=== PATIENT | female | born 1985 | race Caucasian/White ===

== ENCOUNTER 2017-01-07 19:11 | Emergency (ER) | payer SELFPAY ==
[2017-01-07 19:36] VITALS: RESP 18; TEMP 97.4
--- NOTE | 2017-01-07 20:45 | PDOC ---
Hand / Wrist Injury HPI - General Chief Complaint: Upper Extremity Problem/Injury Stated Complaint: Left 4th digit injury Date Seen by Provider: 01/07/17 Time Seen by Provider: 19:25 Source: POSITIVE: Patient Exam Limitations: POSITIVE: No limitations Nurse's Notes Reviewed & Considered: Yes - History of Present Illness Initial Comments: The patient is a 31-year-old female. Somewhat less than an hour [employer] she was leading a horse by its reins. She had the reins wrapped around her left fourth and fifth fingers. The horse pulled way and the reins tightened around these 2 digits. Patient complains of pain over the middle phalange of the left fourth finger. No paresthesia or noted sensory or motor symptoms. She denies any other injuries. Have you received a tetanus shot in the past 10 years?: Unknown Body Location Affected: REPORTS: Upper Extremity (L) Timing: REPORTS: Abrupt Duration: 1 hour Severity: Moderate Context: REPORTS: Other (As above) Location of Injury: REPORTS: 4th Finger Quality: REPORTS: "Pain" Modifying Factors: REPORTS: Movement Associated Symptoms: DENIES: Arm (R), Arm (L), Tingling Distally, Numbness Distally, Loss of Feeling, Loss of Power, Other Any Prior Injuries Related to Current Complaint?: Yes (as above) - Patient Home Medications Home Medications: Home Medications NK [No Home Medications Reported] 01/07/17 - Patient Allergies Allergies/Adverse Reactions: Allergies Allergy/AdvReac Type Severity Reaction Status Date / Time No Known Allergies Allergy Verified 01/07/17 19:14 Past Medical History - heen HEENT History: Denies History Cardiovascular History: Denies History Respiratory History: Denies History Gastrointestinal History: Denies History Genitourinary History: Denies History Endocrine History: Denies History Musculoskeletal History: Denies History Neurological History: Denies History Blood Disorders: Denies History Psychiatric History: Denies History Female Reproductive History: Denies History Obstetrical History: Denies History Cancer History: Denies History In Past Year Been Physically Harmed or Verbally Threatened: No History of MDRO: No Tobacco Use: Never Smoker Alcohol Use: None Substance Use Type: None Previous Surgical History: No Significant Family History: No pertinent family hx Past Medical History Reviewed: Reviewed - No Changes ROS - Limitations ROS Limitations: No Limitations Constitution: REPORTS: Denies Symptoms Cardiovascular: REPORTS: Denies Cardiac Symptoms Respiratory: REPORTS: Denies Resp Symptoms Neurological: REPORTS: Denies Neuro Symptoms Gastrointestinal: REPORTS: Denies GI Symptoms Endocrine: REPORTS: Denies Symptoms Musculoskeletal: REPORTS: Recent Injury (As above. Pain meds some swelling to the distal aspect of the middle phalange of the left fourth finger) Genitourinary: REPORTS: Denies Symptoms Eyes: REPORTS: Denies Symptoms ENT: REPORTS: Denies Symptoms Skin: REPORTS: Denies Skin Symptoms, Other (Skin intact) Lympathic: REPORTS: Denies Lympathic Symptoms Immunologic: POSITIVE: Denies Symptoms Psychiatric: POSITIVE: Denies Psych Symptoms Hand / Wrist Injury Exam - General Appearance General Appearance: POSITIVE: Alert, Cooperative, No Acute Distress. NEGATIVE: No Evidence of Trauma - Extremities Upper Extremity: POSITIVE: No Evidence of FB, Normal ROM, Soft Tissue Tenderness , Bony Tenderness, Swelling, Deformity (mild deformity and swelling distal aspect of middle phalange of the left fourth finger), Uninjured Above Wrist, See Diagram. NEGATIVE: Ecchymosis, Complete Nail Injury, Partial Avulsion, Limited ROM, Limited ROM d/t Pain, Ltd. ROM d/t Funct. Def., Snuff Box Position Tender, Axial Thumb Load Pain Neurovascular / Tendon: POSITIVE: Sensation Normal, Motor Normal, No Vascular Compromise, Tendon Function Normal Skin: POSITIVE: Warm, Dry - Respiratory / CVS Peripheral Pulses: Radial (L): 2+, Femoral (R): 2+ Images - Hands Hand: 1 - Area of tenderness and mild deformity Procedure - Splinting Time Splint Applied: 19:50 Pre-Proc Neuro Vasc Exam: Normal Splint Type: Ortho-Glass Splint Form: Ulnar (Immobilizing third fourth and fifth fingers) Applied By:: Nurse Post-Proc Neuro Vasc Exam: Normal Post Splinting Alignment Good:: Yes Hand / Wrist Injury Progress - Results Reviewed by me Xrays/CTs/US Reviewed by me: Yes Discussed with Radiologist: No Radiology Findings: Fracture distal aspect of middle phalange, left fourth finger with slight volar angulation - Patient's Progress Pain Medication Addressed: POSITIVE: Yes (recommended Advil or Tylenol) School/Work Release Addressed: POSITIVE: Yes (no use of left hand until further evaluated by orthopedics) Re-Examine Time: 19:55 Re-Examine Comment: Good relief of discomfort with splinting Status: POSITIVE: Improved, Re-Examined - Consult Counseled: POSITIVE: Patient, RE: Radiology Results, RE: DX, RE: Need for F/U Patient Care Time - Estimated PCT Patient Care Time (In Minutes): 25 Vital Signs - Recent Vital Signs Vital Signs: Vital Signs (Last 8 hours) Temp Pulse Resp BP Pulse Ox 01/07/17 19:13 97.4 F 75 18 125/35 98 - VS Reviewed Vital Signs Reviewed: Yes Discharge Clinical Impression: Fracture of finger of left hand Discharge Disposition: Discharged to Home Condition: Stable Patient Instructions Given at Discharge: Finger Fracture (ED) Additional Instructions: You have a fracture to one of the bones of the fourth finger of your left hand. Wear the splint on your left hand which was applied in the emergency room. Elevate hand. Advil or Tylenol for pain. Cool compresses. Follow-up in the orthopedic clinic Tuesday or Tuesday for reevaluation by the orthopedist. Return here anytime if condition worsens in any way. Follow Up With: NONE,NONE [Primary Care Provider] - (Instructions as above. Follow-up with your primary care provider. Return here anytime if condition worsens. Wear splint and do not remove until seen by the orthopedist.)
--- NOTE | 2017-01-08 09:52 | DI ---
LEFT] FINGER EXAM, 01/07/2017 6:15 PM: Clinical History: Injury to the fourth and fifth fingers of the left hand. Previous Exam: None at this facility. 3 views are submitted. Films emphasize primarily the ring finger. There is a comminuted fracture of t he distal head of the middle phalanx of the ring finger without definite intra-articular involvement. There is external rotation of the distal fracture fragment with probably 10-15 degrees volar angulat ion. The remainder of the exam is normal. Reading: Comminuted fracture of the distal head of the middle phalanx of the ring finger. There is volar angul ation of the distal fracture fragment by 10-15 degrees with external rotation of the distal fracture fragment.
== END 2017-01-07 20:19 | disposition home or self-care (01) ==
LOC: ER 19:11
DX: S62.635A Displaced fracture of distal phalanx of left ring finger, initial encounter for closed fracture (principal); W23.0XXA Caught, crushed, jammed, or pinched between moving objects, initial encounter
CPT/HCPCS: 29125; 73140; 99282

== ENCOUNTER → 2017-01-11 | Outpatient (CLI) | payer SELFPAY ==
--- NOTE | 2017-01-11 11:32 | DI ---
LEFT RING FINGER, 01/11/2017 11:10 AM: Clinical History: Fracture of the ring finger. Previous Exam: 01/07/2017. 3 views are submitted. There is a fracture of the distal head of the middle phalanx of the ring finge r. The lateral film is a true lateral film and this shows no angulation but there is external rotatio n of the distal fracture fragment Reading: Fracture of the distal head of the middle phalanx of the ring finger. There is extradural rotation of the distal fracture fragment without angulation.
== END ==
LOC: RAD 11:06
PROVIDERS: ATTEND Orthopaedic Surgery Hand Surgery
DX: S62.665A Nondisplaced fracture of distal phalanx of left ring finger, initial encounter for closed fracture (principal)
CPT/HCPCS: 73140